=== PATIENT | female | born 1975 ===

== ENCOUNTER 2021-07-07 06:03 | Inpatient (IN) ==
[~2021-07-07 06:03] MED LIST: Acetaminophen IV 1,000 MG/100 ML BAG IVPB ONE; Famotidine 20 MG/2 ML VIAL IVP ONE; Ringers Solution, Lactated 1,000 ML IVC ONE
[2021-07-07] MEDS ORDERED: CeFAZolin Syr 2,000MG/20 ML 2,000 MG/20 ML SYRINGE IVPB ONE (06:37)
[2021-07-07] MEDS ORDERED: Ondansetron 4 MG/2 ML VIAL ONE (06:50)
[2021-07-07] MEDS ORDERED: *HR* Succinylcholine 200 MG/10 ML VIAL IVP ONE (06:50)
[2021-07-07] MEDS ORDERED: Lidocaine HCL 4 ML Topical Solution (Laryng-O-Jet Kit Sterile Pak) TP ONE (06:50)
[2021-07-07] MEDS ORDERED: *HR* Rocuronium Bromide 50 MG/5 ML VIAL ONE ×2 (06:50→09:32)
[2021-07-07] MEDS ORDERED: *HR* Propofol 200 MG/20 ML VIAL IVP ONE (06:50)
[2021-07-07] MEDS ORDERED: Lidocaine -MPF 2% 2 ML VIAL ONE (06:50)
[2021-07-07] MEDS ORDERED: Dexmedetomidine HCl 400 MCG/100 ML MLS IVC ONE (06:59)
[2021-07-07] MEDS ORDERED: *HR* Midazolam HCl 2 MG/2 ML VIAL ONE (07:14)
[2021-07-07] MEDS ORDERED: Isovue-300 50ML VIAL ONE (07:14)
[2021-07-07] MEDS ORDERED: *HR* FentaNYL (PF) 100 MCG/2 ML VIAL ONE ×2 (07:14→09:18)
[2021-07-07] MEDS ORDERED: Scopolamine Patch 1.5 MG PATCH.TD72 TD ONE (07:23)
[2021-07-07] MEDS ORDERED: *HR* Labetalol 20 MG/4 ML SYRINGE IVP PRN (07:23)
[2021-07-07] MEDS ORDERED: *HR* OxyCODONE Immed Rel 5 MG TABLET PO PRN (07:23)
[2021-07-07] MEDS ORDERED: Pregabalin 75 MG CAPSULE PO ONE (07:23)
[2021-07-07] MEDS ORDERED: *HR* HYDROmorphone 2 MG TABLET PO PRN (07:23)
[2021-07-07 07:28] LABS: INR 1.1; Prothrombin Time 12.3 Seconds (9.4-12.1)
[2021-07-07 07:39] LABS: Basophils # 0.1 K/mcL (0.0-0.2); Basophils % 0.5 %; Eosinophils # 0.3 K/mcL (0.0-0.6); Eosinophils % 2.5 %; Hematocrit 45.6 % (35.3-44.9); Hemoglobin 14.3 g/dL (11.5-15.4); Immature Granulocytes % 0.4 % (0-4); Lymphocytes # 2.6 K/mcL (0.6-4.6); Lymphocytes % 23.6 %; Mean Corpuscular HGB Conc 31.4 g/dL (31.6-35.5); Mean Corpuscular Hemoglobin 29.2 pg (28.0-33.3); Mean Corpuscular Volume 93.3 fL (83.0-100.0); Mean Platelet Volume 10.3 fL (9.4-12.4); Monocytes # 0.5 K/mcL (0.0-1.3); Monocytes % 4.6 %; Neutrophils # 7.5 K/mcL (1.6-8.9); Platelet Count 408 K/mcL (140-400); Red Blood Count 4.89 M/mcL (3.82-4.97); Red Cell Distribution Width 14.6 % (11.5-14.5); Segmented Neutrophils % 68.4 %
[2021-07-07 07:42] LABS: BUN/Creatinine Ratio 9 (6-26); Blood Urea Nitrogen 8 mg/dL (6-20); Calcium 9.4 mg/dL (8.6-10.3); Carbon Dioxide 20 mEq/L (23-29); Chloride 107 mEq/L (98-107); Glucose 116 mg/dL (70-105); Osmolality,Calculated 283 (280-300); Potassium 3.6 mEq/L (3.5-5.1); Sodium 137 mEq/L (136-145); eGFR For African Americans > 60 (> 60); eGFR For Non-African Americans > 60 (> 60)
[2021-07-07] MEDS ORDERED: Ipratropium/Albuterol Neb 3 ML IH ONE ×2 (07:44→12:23)
[2021-07-07 07:53] LABS: Carcinoembryonic Antigen 7.9 ng/mL (Less than 5.0)
[2021-07-07] MEDS ORDERED: Ropivacaine/PF 0.5% 30 ML VIAL ONE (10:04)
[2021-07-07] MEDS ORDERED: EPHEDrine 50 MG/ML VIAL ONE (11:03)
[2021-07-07] MEDS ORDERED: Sugammadex Sodium 200 MG/2 ML VIAL IV ONE (11:23)
[2021-07-07] MEDS ORDERED: *HR* HYDROMORPHONE 2 MG/ML VIAL ONE (11:41)
[2021-07-07] MEDS ORDERED: Ipratropium/Albuterol Neb 3 ML ONE (12:24)
[2021-07-07] MEDS: *HR* HYDROmorphone (PF) 1 MG/ML SYRINGE IVP PRN ×2 (12:37→12:48)
[2021-07-07] MEDS ORDERED: Naloxone 0.4 MG/ML INJ IVP PRN (13:25)
[2021-07-07] MEDS ORDERED: Albuterol 2.5 MG/3 ML NEBULIZER IH PRN (13:25)
[2021-07-07] MEDS ORDERED: Ondansetron 4 MG/2 ML VIAL IVP PRN (13:25)
[2021-07-07] MEDS: 0.9 % Sodium Chloride 1,000 ML IVC SCH (14:12)
[2021-07-07] MEDS: QUEtiapine Fumarate 100 MG TABLET PO SCH (21:05)
[2021-07-07] MEDS: *HR* OxyCODONE Immed Rel 5 MG TABLET PO PRN (22:57)
[2021-07-08] MEDS: 0.9 % Sodium Chloride 1,000 ML IVC SCH (03:35)
[2021-07-08] MEDS: *HR* OxyCODONE Immed Rel 5 MG TABLET PO PRN ×2 (05:10→12:28)
[2021-07-08] MEDS: *HR* Enoxaparin 40 MG/0.4 ML SYRINGE SQ SCH (05:46)
[2021-07-08 05:59] LABS: Basophils % 0.2 %; Eosinophils % 0.1 %; Hematocrit 36.8 % (35.3-44.9); Immature Granulocytes % 0.6 % (0-4); Lymphocytes # 1.9 K/mcL (0.6-4.6); Mean Corpuscular HGB Conc 30.4 g/dL (31.6-35.5); Mean Corpuscular Hemoglobin 28.9 pg (28.0-33.3); Mean Corpuscular Volume 95.1 fL (83.0-100.0); Mean Platelet Volume 10.3 fL (9.4-12.4); Monocytes # 0.9 K/mcL (0.0-1.3); Monocytes % 5.7 %; Neutrophils # 13.2 K/mcL (1.6-8.9); Platelet Count 375 K/mcL (140-400); Red Blood Count 3.87 M/mcL (3.82-4.97); Red Cell Distribution Width 14.7 % (11.5-14.5); Segmented Neutrophils % 81.4 %; White Blood Count 16.2 K/mcL (4.3-11.1)
[2021-07-08 06:00] LABS: Hemoglobin 11.2 g/dL (11.5-15.4)
[2021-07-08 06:16] LABS: BUN/Creatinine Ratio 7 (6-26); Blood Urea Nitrogen 6 mg/dL (6-20); Calcium 8.4 mg/dL (8.6-10.3); Carbon Dioxide 21 mEq/L (23-29); Chloride 109 mEq/L (98-107); Glucose 113 mg/dL (70-105); Magnesium 1.6 mg/dL (1.6-2.6); Osmolality,Calculated 284 (280-300); Phosphorous 2.6 mg/dL (2.7-4.5); Potassium 3.7 mEq/L (3.5-5.1); Sodium 138 mEq/L (136-145); eGFR For African Americans > 60 (> 60); eGFR For Non-African Americans > 60 (> 60)
[2021-07-08] MEDS: hydroCHLOROthiazide 25 MG TABLET PO SCH (08:13)
[2021-07-08] MEDS: FLUoxetine 20 MG CAPSULE PO SCH (08:14)
[2021-07-08] MEDS: Loratadine 10 MG TABLET PO SCH (08:15)
[2021-07-08] MEDS: lisinopriL 20 MG TABLET PO SCH (08:15)
[2021-07-08] MEDS ORDERED: Morphine Sulfate Oral CONC 10 MG/0.5 ML ORAL.SYG SL PRN (11:15)
[2021-07-08] MEDS: D5% in 0.45% NACL w KCl 20 MEQ/1,000 ML MLS IVC SCH (12:21)
[2021-07-08] MEDS ORDERED: *HR* HYDROmorphone 20 MG/20 ML PCA IVC PRN (18:11)
[2021-07-08] MEDS: QUEtiapine Fumarate 100 MG TABLET PO SCH (22:19)
[2021-07-09 01:46] LABS: Basophils # 0.1 K/mcL (0.0-0.2); Basophils % 0.5 %; Eosinophils # 0.2 K/mcL (0.0-0.6); Eosinophils % 2.1 %; Hematocrit 35.9 % (35.3-44.9); Hemoglobin 10.8 g/dL (11.5-15.4); Immature Granulocytes % 0.5 % (0-4); Lymphocytes # 2.9 K/mcL (0.6-4.6); Lymphocytes % 27.5 %; Mean Corpuscular HGB Conc 30.1 g/dL (31.6-35.5); Mean Corpuscular Volume 96.5 fL (83.0-100.0); Mean Platelet Volume 10.2 fL (9.4-12.4); Monocytes # 0.8 K/mcL (0.0-1.3); Monocytes % 7.1 %; Neutrophils # 6.6 K/mcL (1.6-8.9); Platelet Count 325 K/mcL (140-400); Red Blood Count 3.72 M/mcL (3.82-4.97); Red Cell Distribution Width 14.9 % (11.5-14.5); Segmented Neutrophils % 62.3 %; White Blood Count 10.6 K/mcL (4.3-11.1)
[2021-07-09] MEDS: D5% in 0.45% NACL w KCl 20 MEQ/1,000 ML MLS IVC SCH ×2 (02:20→15:46)
[2021-07-09] MEDS: *HR* Enoxaparin 40 MG/0.4 ML SYRINGE SQ SCH (06:19)
[2021-07-09] MEDS: Loratadine 10 MG TABLET PO SCH (08:25)
[2021-07-09] MEDS: FLUoxetine 20 MG CAPSULE PO SCH (08:25)
[2021-07-09] MEDS: lisinopriL 20 MG TABLET PO SCH (08:33)
[2021-07-09] MEDS: hydroCHLOROthiazide 25 MG TABLET PO SCH (08:33)
[2021-07-09] MEDS: QUEtiapine Fumarate 100 MG TABLET PO SCH (20:04)
[2021-07-10] MEDS: D5% in 0.45% NACL w KCl 20 MEQ/1,000 ML MLS IVC SCH (05:38)
[2021-07-10] MEDS: *HR* Enoxaparin 40 MG/0.4 ML SYRINGE SQ SCH (05:38)
[2021-07-10] MEDS: FLUoxetine 20 MG CAPSULE PO SCH (08:08)
[2021-07-10] MEDS: Loratadine 10 MG TABLET PO SCH (08:08)
[2021-07-10] MEDS: hydroCHLOROthiazide 25 MG TABLET PO SCH (08:08)
[2021-07-10] MEDS: lisinopriL 20 MG TABLET PO SCH (08:09)
[2021-07-10] MEDS ORDERED: *HR* OxyCODONE Immed Rel 5 MG TABLET PO PRN (13:53)
[2021-07-10] MEDS: Ibuprofen 600 MG TABLET PO SCH (20:21)
[2021-07-10] MEDS: QUEtiapine Fumarate 100 MG TABLET PO SCH (20:21)
[2021-07-11] MEDS: *HR* Enoxaparin 40 MG/0.4 ML SYRINGE SQ SCH (05:52)
[2021-07-11 07:36] VITALS: BP 132/76; PULSE 77; TEMP 98.5; O2SAT 94
[2021-07-11] MEDS: Ibuprofen 600 MG TABLET PO SCH (07:36)
[2021-07-11] MEDS: FLUoxetine 20 MG CAPSULE PO SCH (07:36)
[2021-07-11] MEDS: hydroCHLOROthiazide 25 MG TABLET PO SCH (07:36)
[2021-07-11] MEDS: Loratadine 10 MG TABLET PO SCH (07:37)
[2021-07-11] MEDS: lisinopriL 20 MG TABLET PO SCH (07:37)
== END 2021-07-11 11:30 | disposition home or self-care (01) | DRG 331 ==
LOC: SAMDAY 06:03 → 3ANU 08:00
PROVIDERS: ADMIT Surgery; ATTEND Surgery